=== PATIENT | female | born 1995 | race Hispanic/Latino ===

== ENCOUNTER 2018-04-01 07:03 | Inpatient (IN) | payer OTHER ==
[2018-04-01] MEDS ORDERED: Ringers Lactate 1,000 ML IV PRN (07:40)
[2018-04-01 08:00] LABS: RPR Titer ND
[2018-04-01] MEDS ORDERED: Ringers Lactate 1,000 ML IV SCH (08:00)
[2018-04-01] MEDS ORDERED: OXYTOCIN/LR 20 UNIT/1,000 ML BAG IV SCH (08:00)
[2018-04-01 08:08] LABS: Absolute Neutrophil 8.5 K/uL (1.8-8.0); Basophils % 0.4 % (0-1.3); Eosinophils % 1.3 % (0-4.4); Hematocrit 37.8 % (36.0-45.0); Lymphocytes % 17.5 % (15.3-44.8); MCH 29.3 pg (27.0-35.0); MCV 85.4 fL (80-100); Monocytes % 8.2 % (3.3-12.3); RBC Red Blood Cell Count 4.42 M/uL (3.86-4.86)
[2018-04-01 08:16] VITALS: BMI 32.4
[2018-04-01] MEDS ORDERED: PROMETHAZINE 25 MG/ML VIAL IV PRN (09:35)
[2018-04-01] MEDS ORDERED: BUTORPHANOL 1 MG/ML INJ IV PRN (09:35)
[2018-04-01 09:41] LABS: Urine Appearance CLEAR; Urine Bilirubin NEGATIVE (NEG); Urine Blood NEGATIVE (NEG); Urine Color DK YELLOW; Urine Glucose NEGATIVE (NEG); Urine Protein TRACE (NEG); Urine Specific Gravity 1.025 (1.005-1.030); Urine Urobilinogen 0.2 mg/dL (0.2-1.0)
[2018-04-01 09:47] LABS: Urine Microscopic Reflex ORDER UMIC
[2018-04-01 10:04] LABS: Urine Bacteria 20-50 /HPF (<20); Urine RBC NONE SEEN /HPF (NONE SEEN)
[2018-04-01 10:05] LABS: Urine Culture Reflex Order REFLEXED
[2018-04-01] MEDS ORDERED: FENTANYL CITR 100 MCG/2 ML IV ONE (11:42)
[2018-04-01] MEDS ORDERED: ROPIVACAINE HCL 0.2% 20ML AMP SQ ONE (11:42)
[2018-04-01] MEDS ORDERED: ROPIVACAINE HCL 100 ML IV PRN (11:42)
[2018-04-01] MEDS ORDERED: METHYLERGONOVINE 0.2MG/ML AMP IM ONE (13:43)
[2018-04-01] MEDS ORDERED: LIDOCAINE 2% INJ, 20 mL 20 ML ONE (13:43)
[2018-04-01] MEDS ORDERED: ACETAMINOPHEN 500 MG TAB PO PRN (14:25)
[2018-04-01] MEDS ORDERED: IBUPROFEN 200 MG TAB PO PRN (14:25)
[2018-04-01] MEDS ORDERED: DOCUSATE NA/SENNA CONC 1 TAB PO PRN (14:25)
[2018-04-01] MEDS ORDERED: BISACODYL 10 MG RECTAL SUPP RECT PRN (14:25)
[2018-04-01] MEDS ORDERED: METHYLERGONOVINE 0.2 MG TAB PO PRN (14:25)
[2018-04-01] MEDS ORDERED: Oxycodone HCl/Acetaminophen 1 TAB TAB PO PRN ×2 (14:25)
[2018-04-01] MEDS ORDERED: ONDANSETRON 4 MG (ODT) TAB PO PRN (14:25)
--- NOTE | 2018-04-01 21:12 | HP ---
Date of Admission: 04/01/2018 History Of Present Illness: Kimberly is a 22-year-old, 2, para 1-0-0-1 at 39 weeks' and 4 days , who presents for an elective induction of labor. The patient has obtained care beginning at 8 weeks' gestation. She has been compliant with care. Only issue during this has been a short interpregnancy interval. She had noninvasive testing done, which revealed low risk female . Level 2 ultrasounds have been normal. Glucose screen was positive, 3-hour g lucose tolerance test was performed, which was negative. She reports good movement. Denies va ginal bleeding. No leakage of fluid. Has irregular contractions. See record for further d etails. Physical Examination: Vital signs: On admission, blood pressure 128/81, pulse of 88, respirations 18. The patient is afeb rile. General: The patient resting in bed, mild distress from contractions. Head and Neck: Normocephalic, atraumatic. Neck is supple. Heart: Regular rate and rhythm. Lungs: Symmetric, nonlabored breathing. Abdomen: Gravid. Extremities: Bilateral lower extremities, no clubbing, cyanosis, or edema. Vaginal exam: Normal external female genitalia. Vagina is pink, moist, normal rugae. Cervix is 3 c m dilated, 60% effaced, -2 station. Rupture of membranes performed, clear fluid noted. Vertex prese ntation. heart rate monitoring: Category 2 tracing. TOCO contractions every 3 minutes. Pitocin is at 6 milliunits. GBS negative. Laboratory Data: Hemoglobin/hematocrit 13/37.8. Assessment And Plan: Kimberly is a 22-year-old, 2, para 1-0-0-1 at 39 weeks and 4 days gestati on, who presents for elective induction of labor. Rupture of membranes has been performed. Pitocin is started and is at 6 milliunits. Continuous maternal monitoring will be performed. The patient declines epidural. Anticipate vaginal . /ASHLI Voice ID: [id number]
[2018-04-01 23:07] LABS: RPR (Rapid Plasma Reagin) NON-REACT (NON-REACT)
[2018-04-02 06:15] LABS: Absolute Lymphocytes (CBC) 2.9 K/uL (0.7-4.9); Absolute Neutrophil 8.6 K/uL (1.8-8.0); Basophils % 0.5 % (0-1.3); Eosinophils % 0.9 % (0-4.4); Hematocrit 35.1 % (36.0-45.0); MCH 29.9 pg (27.0-35.0); MCV 85.6 fL (80-100); MPV 8.5 fL (7.6-11.3); Monocytes % 8.1 % (3.3-12.3)
[2018-04-02 16:33] VITALS: BP 123/79; TEMP 97.9
[2018-04-05 03:43] LABS: HBsAG Nonreactive (Nonreactive)
--- NOTE | 2018-04-05 22:38 | P.OP ---
Date of Service: 04/01/18 Findings and Operative Technique Patient delivered a viable female in cephalic presentation on 04/01/18 at 14:01 over a midline episiotomy. Once infant was delivered nose and mouth were suctioned with a suction bulb and cord was clamped and cut and infant was placed on mother's abdomen for skin to skin bonding. Placenta was delivered with gentle traction. Episiotomy was repaired with a 2.0 vicryl in usual fashion. EBL was 250 cc. Placenta was noted to be infant. APGARS were 9/9. Weight was found to be 7 lb.
== END 2018-04-02 17:25 | disposition home or self-care (01) | DRG 775 ==
LOC: 2ND-WC 07:03
PROVIDERS: ADMIT Student in an Organized Health Care Education/Training Program; ATTEND Student in an Organized Health Care Education/Training Program
PROC: 10E0XZZ Delivery of Products of Conception, External Approach (ICD-10-PCS; principal; 2018-04-01)
PROC: 0W8NXZZ Division of Female Perineum, External Approach (ICD-10-PCS; 2018-04-01)
PROC: 10907ZC Drainage of Amniotic Fluid, Therapeutic from Products of Conception, Via Natural or Artificial Opening (ICD-10-PCS; 2018-04-01)
PROC: 3E033VJ Introduction of Other Hormone into Peripheral Vein, Percutaneous Approach (ICD-10-PCS; 2018-04-01)
DX: O80 Encounter for full-term uncomplicated delivery (principal); Z3A.39 39 weeks gestation of pregnancy; Z37.0 Single live birth
CPT/HCPCS: 36415; 81003; 81015; 85025; 86592; 86901; 87086; 87088; 87340; J0595; J2210; J2550; J2590; J2795; J3010

== ENCOUNTER 2018-08-18 13:15 | Emergency (ER) | payer OTHER ==
[2018-08-18 14:15] LABS: Urine Bacteria 20-50 /HPF (<20); Urine Culture Reflex Order REFLEXED; Urine Mucus 2+ /HPF (NONE SEEN); Urine RBC <5 /HPF (NONE SEEN)
[2018-08-18 14:28] LABS: Absolute Lymphocytes (CBC) 0.5 K/uL (0.7-4.9); Absolute Monocytes 0.5 K/uL (0.1-1.3); Absolute Neutrophil 8.9 K/uL (1.8-8.0); Basophils % 0.3 % (0-1.3); Eosinophils % 0.5 % (0-4.4); Hematocrit 47.5 % (36.0-45.0); MPV 8.3 fL (7.6-11.3); Monocytes % 4.9 % (3.3-12.3); RBC Red Blood Cell Count 5.23 M/uL (3.86-4.86)
[2018-08-18] MEDS ORDERED: ONDANSETRON 4 MG/2 ML VIAL ONE (14:28)
[2018-08-18] MEDS ORDERED: NA CHLORIDE 0.9% 1,000 ML ONE (14:29)
[2018-08-18 14:56] LABS: Blood Morphology Comment NOTED (NOT SEEN); Platelet Estimate ADEQ; Urine White Blood Cell Casts OK
[2018-08-18 14:57] LABS: Stomatocytes 1+
[2018-08-18 15:22] LABS: Urine Blood 3+ (NEG); Urine Glucose NEGATIVE (NEG); Urine Protein 1+ (NEG); Urine Specific Gravity >1.030 (1.005-1.030); Urine pH 5.5 (5.0-7.0)
[2018-08-18 15:36] LABS: ALT/SGPT 26 U/L (12-78); AST/SGOT 17 U/L (15-37); Albumin 3.8 g/dL (3.4-5.0); Alkaline Phosphatase 100 U/L (45-117); BUN Blood Urea Nitrogen 13 mg/dL (7-18); Bicarbonate 27 mmol/L (21-32); Bilirubin Direct 0.1 mg/dL (0-0.2); Bilirubin Total 0.4 mg/dL (0.2-1.0); Glucose Level 102 mg/dL (74-106); Lipase 121 U/L (73-393); Potassium 3.7 mmol/L (3.5-5.1); Sodium Level 142 mmol/L (136-145)
--- NOTE | 2018-08-18 16:12 | EDPHYS ---
Physician Documentation [facility] Name: Kimberly Dupree Age: 23 yrs Sex: Female : 1995 Arrival Date: 08/18/2018 Time: 13:20 Bed 18 Private MD: ED Physician Nadir Bah HPI: 08/18 14:10 This 23 yrs old Female presents to ER via Ambulatory with complaints of rn Vomiting/Diarrhea. 14:10 The patient presents to the emergency department with nausea, vomiting, diarrhea, rn abdominal pain, of the epigastric area. Onset: The symptoms/episode began/occurred last night. Possible causes: unknown. The symptoms are aggravated by nothing. The symptoms are alleviated by nothing. Severity of symptoms: At their worst the symptoms were moderate in the emergency department the symptoms have improved. The patient has not experienced similar symptoms in the past. The patient has not recently seen a physician. REports upper abd pain, began last night, a lot of vomiting episodes, non-bloody, also having diarrhea, abd pain is intermittent, no fever, has had gallbladder removed last year. Also reports headache that began after vomiting so much, no neck pain or stiffness. . 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 - Social history:: Smoking status: Patient/guardian denies using tobacco. - Ebola Screening: : Patient negative for fever greater than or equal to 101.5 degrees Fahrenheit, and additional compatible Ebola Virus Disease symptoms Patient denies exposure to infectious person Patient denies travel to an Ebola-affected area in the 21 days before illness onset No symptoms or risks identified at this time. - Family history:: not pertinent. - Hospitalizations: : No recent hospitalization is reported. ROS: 14:10 Constitutional: Negative for fever, chills, and weight loss, Eyes: Negative for injury, rn pain, redness, and discharge, Neck: Negative for injury, pain, and swelling, Cardiovascular: Negative for chest pain, palpitations, and edema, Respiratory: Negative for shortness of breath, cough, wheezing, and pleuritic chest pain, Abdomen/GI: + abd pain/nausea/vomiting/diarrhea MS/Extremity: Negative for injury and deformity, Skin: Negative for injury, rash, and discoloration, Neuro: Negative for numbness, tingling, and seizure. Exam: 14:10 Constitutional: This is a well developed, well nourished patient who is awake, alert, rn and in no acute distress. Laying on her side using her phone. Head/Face: Normocephalic, atraumatic. Eyes: Pupils equal round and reactive to light, extra-ocular motions intact. Lids and lashes normal. Conjunctiva and sclera are non-icteric and not injected. Cornea within normal limits. Periorbital areas with no swelling, redness, or edema. Neck: Trachea midline, no thyromegaly or masses palpated, and no cervical lymphadenopathy. Supple, full range of motion without nuchal rigidity, or vertebral point tenderness. No Meningismus. Abdomen/GI: soft, mild epigastric tenderness, no rebound Skin: Warm, dry with normal turgor. Normal color with no rashes, no lesions, and no evidence of cellulitis. MS/ Extremity: Pulses equal, no cyanosis. Neurovascular intact. Full, normal range of motion. Equal circumference. Neuro: Awake and alert, GCS 15, oriented to person, place, time, and situation. Cranial nerves II-XII grossly intact. Motor strength 5/5 in all extremities. Sensory grossly intact. Vital Signs: 13:40 BP 121 / 90; Pulse 118; Resp 16 S; Temp 99.2(O); Pulse Ox 98% on R/A; Weight 77.11 kg; iw Height 5 ft. 3 in. (160.02 cm); Pain 0/10; 14:37 BP 88 / 56; Pulse 102; Resp 16; Pulse Ox 100% ; bp 15:27 BP 101 / 58; Pulse 97; Resp 14; Pulse Ox 100% ; bp 13:40 Body Mass Index 30.11 (77.11 kg, 160.02 cm) iw MDM: 13:32 Patient medically screened. rn 16:09 Differential diagnosis: Nonspecific abd pain, gastritis, pancreatitis, viral rn gastroenteritis, gastroenteritis. Data reviewed: vital signs, nurses notes, lab test result(s), and as a result, I will discharge patient. Counseling: I had a detailed discussion with the patient and/or guardian regarding: the historical points, exam findings, and any diagnostic results supporting the discharge/admit diagnosis, lab results, the need for outpatient follow up, to return to the emergency department if symptoms worsen or persist or if there are any questions or concerns that arise at home. Response to treatment: the patient's symptoms have markedly improved after treatment, and as a result, I will discharge patient. Special discussion: Based on the patient's Hx, exam, and Dx evaluation, there is no indication for emergent surgery or inpatient Tx. It is understood by the patient/guardian that if the Sx's persist or worsen they need to return immediately for re-evaluation. I discussed with the patient/guardian in detail that at this point there is no indication for admission to the hospital. It is understood, however, that if the symptoms persist or worsen the patient needs to return immediately for re-evaluation. ED course: Labs unremarkable except for dehydration, improved with fluids, no indication for emergent ct imaging, will dc home with zofran prn and return precautions. . 08/18 13:45 Order name: Urine Microscopic Only; Complete Time: 14:57 bp 08/18 13:51 Order name: Basic Metabolic Panel; Complete Time: 16:05 rn 08/18 13:51 Order name: CBC with Diff; Complete Time: 14:57 rn 08/18 13:51 Order name: Hepatic Function; Complete Time: 16:05 rn 08/18 13:51 Order name: Lipase; Complete Time: 16:05 rn 08/18 13:51 Order name: Flu; Complete Time: 14:57 rn 08/18 13:45 Order name: Urine Dipstick-Ancillary (obtain specimen); Complete Time: 13:45 bp 08/18 13:45 Order name: Urine Test (obtain specimen); Complete Time: 13:45 bp 08/18 13:56 Order name: Urine Dipstick--Ancillary (enter results); Complete Time: 15:33 bd 08/18 13:56 Order name: Urine --Ancillary (enter results); Complete Time: 15:33 bd 08/18 14:19 Order name: Urine Culture EDKY 08/18 14:30 Order name: CBC Smear Scan; Complete Time: 14:57 EDMS 08/18 13:51 Order name: IV Saline Lock; Complete Time: 13:52 rn 08/18 13:51 Order name: Labs collected and sent; Complete Time: 14:03 rn Administered Medications: 14:10 Drug: Zofran 4 mg Route: IVP; Site: right antecubital; bp 14:22 Follow up: Response: Nausea is decreased bp 16:28 Follow up: Response: Nausea is decreased bp 14:10 Drug: NS 0.9% 1000 ml Route: IV; Rate: 1000 ml; Site: right antecubital; bp 16:28 Follow up: IV Status: Completed infusion; IV Intake: 1000ml bp Disposition: 08/18/18 16:11 Discharged to Home. Impression: Dehydration, Vomiting, Enteritis. - Condition is Stable. - Discharge Instructions: Dehydration, Adult, Nausea and Vomiting, Adult, Viral Gastroenteritis, Adult. - Prescriptions for Zofran ODT 4 mg Oral tablet,disintegrating - place 1 tablet by TRANSLINGUAL route every 8 hours As needed; 20 tablet. - Medication Reconciliation Form, Thank You Letter, Antibiotic Education, Prescription Opioid Use form. - Follow up: Private Physician; When: As needed; Reason: Recheck today's complaints, Re-evaluation by your physician. - Problem is new. - Symptoms have improved. Signatures: Dispatcher [employer] EDMS Jessie Mayes RN RN iw Nadir Bah MD MD rn Peltier, Brian, RN RN bp Corrections: (The following items were deleted from the chart) 16:30 16:11 08/18/2018 16:11 Discharged to Home. Impression: Dehydration; Vomiting; bp Enteritis. Condition is Stable. Forms are Medication Reconciliation Form, Thank You Letter, Antibiotic Education, Prescription Opioid Use. Follow up: Private Physician; When: As needed; Reason: Recheck today's complaints, Re-evaluation by your physician. Problem is new. Symptoms have improved. rn
--- NOTE | 2018-08-18 16:12 | ER ---
Nurse's Notes [facility] Name: Kimberly Dupree Age: 23 yrs Sex: Female : 1995 Arrival Date: 08/18/2018 Time: 13:20 Bed 18 Private MD: Diagnosis: Dehydration;Vomiting;Enteritis Presentation: 08/18 13:38 Presenting complaint: Patient states: intermittent headache, nausea started last night, iw 20+ episodes of vomiting since 3 am, one episode of diarrhea, denies fever, also c/o intermittent right flank pain, denies urinary symptoms. Transition of care: patient was not received from another setting of care. Onset of symptoms was August 18, 2018. Risk Assessment: Do you want to hurt yourself or someone else? Patient reports no desire to harm self or others. Initial Sepsis Screen: Does the patient meet any 2 criteria? No. Patient's initial sepsis screen is negative. Does the patient have a suspected source of infection? No. Patient's initial sepsis screen is negative. Care prior to arrival: None. 13:38 Method Of Arrival: Ambulatory iw 13:38 Acuity: SHANE 3 iw Triage Assessment: 13:48 Headache History: The patient has had previous headaches and this one is similar to bp previous episodes. General: Appears in no apparent distress. uncomfortable, Behavior is cooperative, appropriate for age, anxious. Pain: Complains of pain in head Pain currently is 7 out of 10 on a pain scale. Pain began 1 day ago. Also complains of nausea. EENT: No deficits noted. Neuro: Level of Consciousness is awake, alert, obeys commands, Oriented to person, place, time, situation, Appropriate for age. Cardiovascular: No deficits noted. Respiratory: Airway is patent Respiratory effort is even, unlabored, Respiratory pattern is regular, symmetrical. GI: No signs and/or symptoms were reported involving the gastrointestinal system. : No signs and/or symptoms were reported regarding the genitourinary system. Derm: No deficits noted. Musculoskeletal: Circulation, motion, and sensation intact. Range of motion: intact in all extremities. 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 - Social history:: Smoking status: Patient/guardian denies using tobacco. - Ebola Screening: : Patient negative for fever greater than or equal to 101.5 degrees Fahrenheit, and additional compatible Ebola Virus Disease symptoms Patient denies exposure to infectious person Patient denies travel to an Ebola-affected area in the 21 days before illness onset No symptoms or risks identified at this time. - Family history:: not pertinent. - Hospitalizations: : No recent hospitalization is reported. Screenin:45 Abuse screen: Denies threats or abuse. Denies injuries from another. Nutritional bp screening: No deficits noted. Tuberculosis screening: No symptoms or risk factors identified. Fall Risk None identified. Assessment: 13:45 General: SEE TRIAGE NOTE. Pain: Complains of pain in head. bp 15:28 Reassessment: ALL CURRENT ORDERS COMPLETED, RESULTS PENDING. IVF INFUSING. bp 16:29 Reassessment: PT D/C HOME AMBULATORY, DX WITH NAUSEA AND VOMITING. bp Vital Signs: 13:40 BP 121 / 90; Pulse 118; Resp 16 S; Temp 99.2(O); Pulse Ox 98% on R/A; Weight 77.11 kg; iw Height 5 ft. 3 in. (160.02 cm); Pain 0/10; 14:37 BP 88 / 56; Pulse 102; Resp 16; Pulse Ox 100% ; bp 15:27 BP 101 / 58; Pulse 97; Resp 14; Pulse Ox 100% ; bp 13:40 Body Mass Index 30.11 (77.11 kg, 160.02 cm) iw ED Course: 13:20 Patient arrived in ED. mr 13:32 Nadir Bah MD is Attending Physician. rn 13:36 Luis E Lazar, JAMES is Primary Nurse. bp 13:40 Triage completed. iw 13:41 Arm band placed on. iw 13:45 Patient has correct armband on for positive identification. Bed in low position. Call bp light in reach. Side rails up X2. Adult w/ patient. 14:10 Inserted saline lock: 20 gauge in right antecubital area, using aseptic technique. bp Blood collected. 14:25 Urine Culture Sent. [facility] 14:25 Urine --Ancillary (enter results) Sent. [facility] 14:25 Urine Dipstick--Ancillary (enter results) Sent. [facility] 14:[address] [facility] 14:25 Urine collected: Flu and/or RSV swab sent to lab. [facility] 16:29 No provider procedures requiring assistance completed. IV discontinued, intact, bp bleeding controlled, No redness/swelling at site. Pressure dressing applied. Administered Medications: 14:10 Drug: Zofran 4 mg Route: IVP; Site: right antecubital; bp 14:22 Follow up: Response: Nausea is decreased bp 16:28 Follow up: Response: Nausea is decreased bp 14:10 Drug: NS 0.9% 1000 ml Route: IV; Rate: 1000 ml; Site: right antecubital; bp 16:28 Follow up: IV Status: Completed infusion; IV Intake: 1000ml bp Intake: 16:28 IV: 1000ml; Total: 1000ml. bp Outcome: 16:11 Discharge ordered by . rn 16:29 Discharged to home ambulatory. bp 16:29 Condition: stable 16:29 Discharge instructions given to patient, Instructed on discharge instructions, follow up and referral plans. medication usage, Demonstrated understanding of instructions, follow-up care, medications, Prescriptions given X 1. 16:30 Patient left the ED. bp Signatures: Olga Weiner Irene, RN JAMES Nadir Bah MD MD rn Martinez, Maria [facility] Luis E Lazar RN RN bp
[2018-08-18 16:53] VITALS: TEMP 99.2
[2018-08-18 16:54] VITALS: O2SAT 100
[2018-08-18 16:55] VITALS: BP 101/58
== END 2018-08-18 16:30 | disposition home or self-care (01) ==
LOC: ER 13:15
DX: K52.9 Noninfective gastroenteritis and colitis, unspecified (principal); E86.0 Dehydration
CPT/HCPCS: 36415; 80048; 80076; 81003; 81015; 81025; 83690; 85025; 87086; 87088; 87804; 96361; 96374; 99284; J2405; J7030